=== PATIENT | female | born 1955 ===

== ENCOUNTER 2023-12-06 13:18 | Outpatient (CLI) | payer BC, SELFPAY | END 2023-12-06 13:19 | disposition home or self-care (01) | PROVIDERS: PCP Family Medicine; Visit Provider Nurse Practitioner Family | DX: Z00.00 Encounter for general adult medical examination without abnormal findings (principal); I10 Essential (primary) hypertension; E03.9 Hypothyroidism, unspecified; R07.89 Other chest pain; R53.83 Other fatigue; E66.9 Obesity, unspecified; R25.2 Cramp and spasm; Z13.6 Encounter for screening for cardiovascular disorders | CPT/HCPCS: 80053; 80061; 83735; 84443 ==